=== PATIENT | male | born 1950 | race Caucasian/White ===

== ENCOUNTER 2017-12-01 07:27 | Day surgery (SDC) | payer MEDICARE ==
[~2017-12-01 07:27] MED LIST: ADULT ASA81 MG OR; ANALGESI EX; GEMFIBROZIL600 MG OR; HYDROCHLOROT25 MG PO; HYDROCO/APAP1 TA9 PO; LEXAPRO10 MG OR; LIPITOR40 M1 PO; LISINOPRIL20 M1 PO; LOPRESSOR50 MG OR; MAG PO; MONTELUKAST SOD10 MG PO; PERSANTINE75 MG OR; PRINIVIL5 MG OR; SIMVASTATIN40 MG OR
[2017-12-01 09:39] VITALS: BP 151/84
== END 2017-12-01 09:56 | disposition home or self-care (01) ==
LOC: ENDO 07:27
PROVIDERS: ATTEND Surgery
PROC: 0DJD8ZZ Inspection of Lower Intestinal Tract, Via Natural or Artificial Opening Endoscopic (ICD-10-PCS; principal; 2017-12-01)
DX: Z12.11 Encounter for screening for malignant neoplasm of colon (principal); K64.4 Residual hemorrhoidal skin tags; K57.30 Diverticulosis of large intestine without perforation or abscess without bleeding; Z86.73 Personal history of transient ischemic attack (TIA), and cerebral infarction without residual deficits